=== PATIENT | female | born 1995 | race Caucasian/White ===

== ENCOUNTER 2021-11-20 11:06 | Outpatient (CLI) | payer OTHER, SELFPAY ==
--- NOTE | ~2021-11-20 | US_ITS ---
EXAMINATION: US OB /maternal detail EXAM DATE: 11/20/2021 12:08 INDICATION: 22 Weeks Anatomy. 2nd trimester. TECHNIQUE: Pelvic obstetrical transabdominal sonogram was performed by a technologist. There are mu ltiple grayscale and Doppler images available for interpretation. There are no earlier studies of th is gestation for comparison. FINDINGS: There is a single fetus identified in vertex presentation with a heart rate of 125 beats pe r minute. The placenta is located in the posterior position. There is no sonographic evidence of ret roplacental hemorrhage identified. There is subjectively expected amount of amniotic fluid. BIOMETRIC DATA: Biparietal diameter (BPD): 5.2 cm ----------------> 21 weeks 6 days. Head circumference (HC): 19.7 cm ----------------> 21 weeks 6 days. Abdominal circumference (AC): 16.4 cm ----------> 20 weeks 3 days. Femur length (FL): 3.6 cm --------------------------> 21 weeks 2 days. These measurements are concordant. HC/AC ratio is 1.20 (The 5th -- 95th percentile range is 1.06-1.24. Estimated weight is 426 g +/- 64 g. This is the 25th percentile percentile when the currently reported clinical gestation age 21 weeks 6 days, clinical estimated date of delivery (RAJESH-OPE) 03/27/ 022 is used. estimated gestational age based on measurements from this exam is 21 weeks 4 days, with an estimated date of delivery (RAJESH-AUA) 03/29. ANATOMIC SURVEY: The following anatomy is identified and is sonographically normal in appearance: Cerebral ventricles Cavum septum pellucidum Cerebellum Cisterna magna Nuchal fold CTL-spine Four-chamber heart Cardiac outflow tracts Diaphragm Stomach Kidneys Bladder Three-vessel cord Cord insertion Extremities Nose/lips IMPRESSION: 1. Single fetus in vertex presentation with heart rate 125 beats per minute. 2. Estimated weight of 426 grams, 25th percentile using the currently reported clinical gestat ion age of 21 weeks 6 days, RAJESH(OPE) 03/27. 3. Normal anatomic survey. Reviewed, dictated and finalized at location G. HAULER IMPRESSION: 1. Single fetus in vertex presentation with heart rate 125 beats per minute. 2. Estimated weight of 426 grams, 25th percentile using the currently re ported clinical gestation age of 21 weeks 6 days, RAJESH(OPE) 03/27. 3. Normal anatomic survey.
[2022-03-24 22:10] VITALS: BP 136/85; PULSE 69
[2022-03-24 22:15] VITALS: BP 128/78; PULSE 68
[2022-03-24 22:30] VITALS: BP 130/82; PULSE 70
[2022-03-24 22:45] VITALS: BP 120/80; PULSE 72
== END 2021-11-20 11:07 | disposition home or self-care (01) ==
LOC: ANHIMG 11:11
PROVIDERS: Visit Provider Student in an Organized Health Care Education/Training Program
DX: Z34.90 Encounter for supervision of normal pregnancy, unspecified, unspecified trimester (principal); Z3A.21 21 weeks gestation of pregnancy
CPT/HCPCS: 76805

== ENCOUNTER 2022-03-24 21:58 | Outpatient (CLI) | payer OTHER, SELFPAY ==
[2022-03-24 23:13] VITALS: BP 128/78; PULSE 68
== END 2022-03-24 23:10 | disposition home or self-care (01) ==
LOC: ANHOBOP 22:51 → ANHLDR 22:51
PROVIDERS: Visit Provider Student in an Organized Health Care Education/Training Program
DX: O42.90 Premature rupture of membranes, unspecified as to length of time between rupture and onset of labor, unspecified weeks of gestation (principal); Z3A.00 Weeks of gestation of pregnancy not specified
CPT/HCPCS: 59025; 84112; 99199

== ENCOUNTER 2022-03-28 16:02 | Inpatient (IN) | payer OTHER, SELFPAY ==
[2022-03-28] VITALS (7 sets, daily range): BP systolic 115–131; BP diastolic 70–85; PULSE 70–93; TEMP 36.1–36.3; BMI 28.0
[2022-03-28 16:58] LABS: Basophils Percent Auto 0.2 % (0.2-1.2); Eosinophils Absolute Auto 0.1 K/mm3 (0-0.3); Eosinophils Percent Auto 1.6 % (0-4.4); Hematocrit 37.6 % (37.0-47.0); Hemoglobin 12.6 g/dL (12.0-15.0); Immature Granulocyte Absolute 0.04 K/mm3 (0.00-0.031); Immature Granulocyte Percent A 0.5 % (0-0.5); Lymphocytes Absolute Auto 0.85 K/mm3 (0.9-3.2); Mean Corpuscular HGB Conc 33.5 g/dl (32-36); Mean Corpuscular Hemoglobin 31.9 pg (26-34); Mean Corpuscular Volume 95.2 fl (80-100); Mean Platelet Volume 11.2 fl (7.4-10.4); Monocytes Absolute Auto 0.5 K/mm3 (0.1-0.6); Monocytes Percent Auto 5.9 % (2.6-8.5); Neutrophils Percent Auto 81.8 % (45.5-73.1); Platelet Count Result 178 k/mm3 (150-375); Red Blood Count 3.95 M/mm3 (4.2-5.4); Red Cell Distribution Width 13.5 % (11.5-14.5); White Blood Count 8.5 K/mm3 (4.5-10.0)
[2022-03-28] MEDS: DINOPROSTONE 10 MG VAG INSERT VAGINAL (17:00)
[2022-03-28] MEDS: LACTATED RINGERS 1,000 ML 125 ML IV CONT (17:09)
[2022-03-28] MEDS: AMPICILLIN 2 GM/NS 100 ML 2 GM/100 ML BAG IVPB (17:13)
--- NOTE | 2022-03-28 17:24 | LDADM ---
This patient, Nadine Manuel, was admitted to Labor/Delivery/Recovery 108 on 03/28/22 at 16:02 for induction of labor. Plans for labor, pain management and were discussed with patient. Patient/family oriented to hospital policies and general routines including ID bracelet, bed and alarms, visiting hours, pain management, procedures, bathroom and other care routines, personal items, smoking policy, room service/diet and guest tray routines, security routines, and visiting hours. Patient/Family are encouraged to report perceived risks to care and to ask questions if they do not understand what they are told or what they should do. See OBIX for further documentation.
[2022-03-28] MEDS: FAMOTIDINE 20 MG/2 ML VIAL IV PUSH (17:44)
[2022-03-28 18:11] LABS: HIV 1/2 Ab P24 Ag Result Negative (Negative)
--- NOTE | 2022-03-28 18:13 | WPDANESEPP ---
Anes - Eval Pre Procedure Procedure: labor epidural Date/Time: 03/28/22 18:13 Surgeon: isaías Pre Op Diagnosis: IOL Patient Data Age: 26 Gender: F Height: 1.83 m Weight: 94 kg Last Vital Signs Pulse 77 03/28/22 18:00 BP 115/70 03/28/22 18:00 O2 Del Method Room Air 03/28/22 17:15 Allergies Allergy/AdvReac Type Severity Reaction Status Date / Time No Known Allergies Allergy Verified 02/27/22 13:28 Home Medications Medication Instructions Recorded Confirmed Type prenat.vits,jurgen,[id number] 1 tablet PO HS 02/27/22 03/28/22 History Laboratory Tests 03/28/22 03/28/22 03/28/22 16:44 16:44 16:44 WBC 8.5 K/mm3 K/mm3 (4.5-10.0) RBC 3.95 M/mm3 L M/mm3 (4.2-5.4) Hgb 12.6 g/dL g/dL (12.0-15.0) Hct 37.6 % % (37.0-47.0) MCV 95.2 fl fl (80-100) MCH 31.9 pg pg (26-34) MCHC 33.5 g/dl g/dl (32-36) RDW 13.5 % % (11.5-14.5) Plt Count 178 k/mm3 k/mm3 (150-375) MPV 11.2 fl H fl (7.4-10.4) Immature Gran % (Auto) 0.5 % % (0-0.5) Neut % (Auto) 81.8 % H % (45.5-73.1) Lymph % (Auto) 10.0 % L % (18.3-44.2) Haakon % (Auto) 5.9 % % (2.6-8.5) Eos % (Auto) 1.6 % % (0-4.4) Baso % (Auto) 0.2 % % (0.2-1.2) Lymph # (Auto) 0.85 K/mm3 L K/mm3 (0.9-3.2) Haakon # (Auto) 0.5 K/mm3 K/mm3 (0.1-0.6) Eos # (Auto) 0.1 K/mm3 K/mm3 (0-0.3) Baso # (Auto) 0.0 K/mm3 K/mm3 (0.0-0.1) Abs Immat Gran (auto) 0.04 K/mm3 H K/mm3 (0.00-0.031) Absolute Neuts (auto) 7.0 K/mm3 H K/mm3 (1.3-6.7) Absolute Nucleated RBC 0.0 K/mm3 K/mm3 (0.0-0.012) Nucleated RBC % 0.0 % % (0.0-0.2) RPR Pending HIV 1&2 Ab/P24 Ag 4thGn Negative (Negative) Blood Type Antibody Screen 03/28/22 16:44 WBC RBC Hgb Hct MCV MCH MCHC RDW Plt Count MPV Immature Gran % (Auto) Neut % (Auto) Lymph % (Auto) Haakon % (Auto) Eos % (Auto) Baso % (Auto) Lymph # (Auto) Haakon # (Auto) Eos # (Auto) Baso # (Auto) Abs Immat Gran (auto) Absolute Neuts (auto) Absolute Nucleated RBC Nucleated RBC % RPR HIV 1&2 Ab/P24 Ag 4thGn Blood Type B Positive Antibody Screen Negative Patient hx anesthesia problems: none Family hx anesthesia problems: none Results Review: All pre-operative results and documents have been reviewed as part of the pre-operative evaluation. [facility] Family History Family History (Updated 03/28/22 @ 17:27 by Ingrid Dyer RN) Mother Asthma Father DVT (deep venous thrombosis) Occurred after back surgery Sibling Heart murmur Social History Social History Smoking status: Never smoker Second hand tobacco smoke exposure: No Substance use: never Spiritual care concerns: No Exam Day of Procedure 03/28/22 18:13
[2022-03-28] MEDS: AMPICILLIN 1 GM/NS 50 ML 1 GM/50 ML BAG IVPB (21:49)
[2022-03-28] MEDS: fentaNYL CITRATE INJ (*CRX) 100 MCG/2 ML VIAL 50 MCG IV PUSH (22:38)
[2022-03-29] VITALS (202 sets, daily range): BP systolic 104–144; BP diastolic 43–109; PULSE 40–130; RESP 16; TEMP 35.9–37.3; O2SAT 80–100
[2022-03-29] MEDS: AMPICILLIN 1 GM/NS 50 ML 1 GM/50 ML BAG IVPB ×4 (01:50→14:05)
[2022-03-29] MEDS: fentaNYL CITRATE INJ (*CRX) 100 MCG/2 ML VIAL IV PUSH (01:52)
[2022-03-29] MEDS: fentaNYL CITRATE INJ (*CRX) 100 MCG/2 ML VIAL 50 MCG IV PUSH (04:58)
[2022-03-29 06:39] LABS: Rapid Plasma Reagin Non-Reactive (NonReactive)
--- NOTE | 2022-03-29 07:41 | PM.IMHP ---
H&P: HPI History of Present Illness Date/Time: 03/29/22 07:41 Chief Complaint: Intrauterine at term Narrative: 26 yo at 40w1d who presents for elective IOL. Pt has been uncomplicated thus far. Pt did have GBS bacteruria Review of Systems Cardiovascular: Cardiovascular: Denies chest pain, Denies leg edema, Denies palpitations, Denies dyspnea and Denies dyspnea on exertion Respiratory: Respiratory: Denies cough, Denies dyspnea and Denies dyspnea on exertion Gastrointestinal: Gastrointestinal: Denies abdominal pain, Denies constipation, Denies diarrhea, Denies nausea and Denies vomiting Genitourinary: Genitourinary: Denies hematuria, Denies urinary frequency, Denies dysuria, Denies pelvic pain, Denies urinary incontinence and Denies vaginal discharge Neurologic: Reports system reviewed and no additional complaints, except as documented Psychiatric: Psychiatric: Reports no additional psychiatric complaints Endocrine: Endocrine: Denies palpitations [facility] Family History Family History (Updated 03/28/22 @ 17:27 by Ingrid Dyer RN) Mother Asthma Father DVT (deep venous thrombosis) Occurred after back surgery Sibling Heart murmur Social History Social History Smoking status: Never smoker Second hand tobacco smoke exposure: No Substance use: never Spiritual care concerns: No Meds Home Medications and Allergies Home Medications Medication Instructions Recorded Confirmed Type prenat.vits,jurgen,szn-ddep-lrlxs 1 tablet PO HS 02/27/22 03/28/22 History Allergies Allergy/AdvReac Type Severity Reaction Status Date / Time No Known Allergies Allergy Verified 02/27/22 13:28 Vital Signs Vital Signs - 24 hr 03/28/22 16:48 03/28/22 18:00 03/28/22 16:46 Temperature 36.1 C L 36.2 C L Pulse Rate 84 77 Blood Pressure 131/82 115/70 Pulse Oximetry Oxygen Delivery 03/28/22 19:01 03/28/22 20:01 03/28/22 22:41 Temperature Pulse Rate 70 91 93 Blood Pressure 119/72 119/71 121/85 Pulse Oximetry Oxygen Delivery 03/28/22 17:15 03/29/22 01:11 03/29/22 01:12 Temperature Pulse Rate Blood Pressure Pulse Oximetry 80 L 92 Oxygen Delivery Room Air 03/29/22 01:17 03/29/22 01:22 03/29/22 01:27 Temperature Pulse Rate Blood Pressure Pulse Oximetry 99 99 98 Oxygen Delivery 03/29/22 01:32 03/29/22 01:37 03/29/22 01:42 Temperature Pulse Rate Blood Pressure Pulse Oximetry 98 100 98 Oxygen Delivery 03/29/22 01:50 03/29/22 01:55 03/29/22 01:56 Temperature Pulse Rate 66 Blood Pressure 115/63 Pulse Oximetry 97 99 Oxygen Delivery 03/29/22 02:00 03/29/22 02:05 03/29/22 02:10 Temperature Pulse Rate Blood Pressure Pulse Oximetry 96 98 98 Oxygen Delivery 03/29/22 02:13 03/29/22 02:18 03/29/22 02:23 Temperature Pulse Rate Blood Pressure Pulse Oximetry 99 98 99 Oxygen Delivery 03/29/22 02:28 03/29/22 02:33 03/29/22 02:38 Temperature Pulse Rate Blood Pressure Pulse Oximetry 99 98 99 Oxygen Delivery 03/29/22 02:43 03/29/22 02:48 03/29/22 02:53 Temperature Pulse Rate Blood Pressure Pulse Oximetry 99 98 99 Oxygen Delivery 03/29/22 02:58 03/29/22 03:03 03/29/22 03:08 Temperature Pulse Rate Blood Pressure Pulse Oximetry 99 98 99 Oxygen Delivery 03/29/22 03:13 03/29/22 03:18 03/29/22 03:26 Temperature Pulse Rate Blood Pressure Pulse Oximetry 99 99 99 Oxygen Delivery 03/29/22 03:31 03/29/22 03:36 03/29/22 03:41 Temperature Pulse Rate Blood Pressure Pulse Oximetry 100 99 99 Oxygen Delivery 03/29/22 03:46 03/29/22 03:51 03/29/22 03:56 Temperature Pulse Rate Blood Pressure Pulse Oximetry 99 99 99 Oxygen Delivery 03/29/22 04:01 03/29/22 04:06 03/29/22 04:11 Temperature Pulse Rate Blood Pressure Pulse Oximetry 99 99 100 O
--- NOTE | 2022-03-29 07:47 | PM.OBPNLAB ---
Pain Control Date/time seen: 03/29/22 07:47 Pelvic Exam Dilation (cm): 2 Effacement (%): 50 station: -2 Amniotic membrane status: Ruptured (unintentional amniotomy at jean-baptiste placement, clear) Status status: Category l Assessment and Plan Assessment: induction ongoing Plan: begin patient augmentation Comments: s/p cervidil. Cervical jean-baptsite catheter placed. Unintentional amniotomy at placement, clear fluid. FHT cat 1. will augment with pitocin as necessary
[2022-03-29] MEDS: LACTATED RINGERS 1,000 ML 125 ML IV CONT ×2 (08:12→09:48)
[2022-03-29] MEDS: OXYTOCIN 30 UNITS/NS 500 ML 30 UNITS/500 ML BAG IV CONT (09:33)
--- NOTE | 2022-03-29 15:56 | PM.OBPRVD ---
OB - Delivery Note Procedure Procedure: Patient pushed for a spontaneous vaginal delivery. The fetus was delivered atraumatically and placed on the maternal abdomen. The cord was clamped and cut after 1 minute of life. The cord was double clamped and cut and a segment of cord was collected for cord gases. Cord blood was collected for blood type and Coomb's testing. The placenta delivered spontaneously and was noted to be intact. The perineum was inspected and there was a 2nd degree perineal laceration. The laceration was repaired with 3-0 vicryl in the usual fashion. The uterus was firm and good hemostasis was noted. The patient and fetus were stable in the delivery room. Delivery monitor: External FHT Route of delivery: Episiotomy description: None Laceration Description: Perineal - 2nd Degree, Vaginal (bilateral) and Superficial Delivery repair: vicryl Specimen: No Quantitative Blood Loss (ml): 200 Disposition: Floor () Complications: No immediate complications Baby Date of : 03/29/22 Time of : 15:38 Weeks of gestation at delivery: 40 Infant gender: Male Weight (pounds): 9 Weight (ounces): 10 presentation: vertex position: Right Occiput Anterior Placenta delivery description: Spontaneous Cord Vessel Description: 3 Vessels score one minute: 9 score five minutes: 9
[2022-03-29] MEDS: OXYTOCIN 30 UNITS/NS 500 ML 30 UNITS/500 ML BAG 125 UNITS IV CONT (16:25)
[2022-03-29] MEDS: IBUPROFEN 600 MG TABLET PO (18:37)
[2022-03-29] MEDS: ACETAMINOPHEN 325 MG TABLET 650 MG PO (18:38)
[2022-03-29] MEDS: BENZOCAINE 20% AER SPR (*SP) 56 GM CAN 1 SPRAY TOPICAL (18:38)
[2022-03-29] MEDS: WITCH HAZEL 40 PADS 1 PAD TOPICAL (18:38)
--- NOTE | 2022-03-29 19:20 | OBPPTRN ---
Patient transferred to post room #282 via wheelchair. Support person present. Oriented to unit, room, information board, rooming in, admission packet and security measures. Patient verbalizes understanding. with patient.
[2022-03-30] MEDS: IBUPROFEN 600 MG TABLET PO ×2 (04:22→13:47)
[2022-03-30] MEDS: ACETAMINOPHEN 325 MG TABLET 650 MG PO ×2 (04:22→13:48)
[2022-03-30 04:25] VITALS: BP 118/82; PULSE 67; RESP 16; TEMP 36.6; O2SAT 98
[2022-03-30 05:06] LABS: Hematocrit 31.9 % (37.0-47.0); Hemoglobin 10.8 g/dL (12.0-15.0)
[2022-03-30 06:54] VITALS: BP 108/83; PULSE 65; RESP 18; TEMP 36.7; O2SAT 100
--- NOTE | 2022-03-30 08:10 | P.PNOB_ITS ---
OB - PN: Subj Subjective Date/time seen: 03/30/22 08:10 Patient comments: no complaints, pain well controlled and tolerating diet [place] feeding status: exclusively breast feeding Narrative: patient doing well this AM. No complaints. Pain is well controlled. She reports minimal bleeding. She is ambulating and voiding without difficulty. She is tolerating PO. She denies N/V, fever, chills. OB - PN: Obj Data Labs CBC & Chem 7: 03/30/22 04:33 Labs: Laboratory Results - last 24 hr 03/30/22 04:33 Hgb 10.8 L Hct 31.9 L OB - PN A/P Plan day: 1 Plan: routine care Comments: patient doing well H/H stable plan for infanct circumcision today, risks, benefits, alternatives discussed. Consent obtained continue routine care Time Spent With Patient Time: Total time spent is greater than 50% in coordination of care (as documented) at patient's floor/unit and/or counseling patient: Time with patient: less than 15 minutes Review of Systems Review of Systems: All systems reviewed & are unremarkable except as noted in HPI and below Exam Const: General: comfortable and no acute distress Resp: Effort & Inspection: normal respiratory effort Cardio: Rate: regular rate GI: GI Palp: Yes Soft to palpation and No Tenderness to palpation present (GI) Auscultation: normal bowel sounds Other: fundus firm and below umbilicus. Psych: Affect: normal affect
[2022-03-30] MEDS: MULTIVIT/MIN/PREN/FOL AC/IRON TABLET 1 TAB PO (13:47)
[2022-03-30] MEDS: DOCUSATE SODIUM 100 MG CAPSULE PO (13:48)
[2022-03-30 20:10] VITALS: BP 114/70; PULSE 85; RESP 18; TEMP 36.5; O2SAT 98
[2022-03-31 07:30] VITALS: BP 105/63; PULSE 70; RESP 20; TEMP 36.4
--- NOTE | 2022-03-31 08:11 | P.DS_ITS ---
DS: Admitting Diagnosis Discharge Date 03/31/22 Admitting Diagnosis intrauterine at term OB - DS: Summary Hospital Course Hospital Course: 26 yo G1 who presented for elective IOL. Pt went on to have an uncomplicated . Pt course was uncomplicated and she was d/c home on PPD#2. OB Procedures : None OB Procedures Intrapartum: Spontaneous Vag Delivery OB Procedures: : None Peripartum Data Delivery Method: Natural Vaginal Laceration Description: Perineal - 2nd Degree Status at Discharge Functional status at discharge: independent ambulation Overall status at discharge: patient is back to baseline Time Spent with Patient Time attestation: Total time spent providing and/or coordinating discharge services: Time spent: Less than 30 minutes Exam Const: General: comfortable and no acute distress Resp: Effort & Inspection: normal respiratory effort Auscultation: clear to auscultation bilaterally Cardio: Rate: regular rate GI: GI Palp: Yes Soft to palpation Auscultation: normal bowel sounds Other: Fundus firm below umbilicus Psych: Appearance: grossly normal Mental Status: mental status grossly normal Affect: normal affect Discharge Plan Discharge Discharging Clinician: Laz Cespedes Patient Disposition: Home, Self-Care Activity: as tolerated and pelvic rest Diet: regular Patient Instructions: Antibiotic Form, Vaginal Delivery (DC) Stand Alone Forms: General Discharge Information Follow-up/Referrals: Laz Cespedes MD [Physician] - 4 Weeks Discharge Medications: New acetaminophen [Mapap (acetaminophen)] 325 mg Tablet 650 mg PO Q6H PRN (Reason: Mild Pain (1-3) Or Headache) Qty: 30 0RF ibuprofen 600 mg Tablet 600 mg PO Q6H PRN (Reason: Cramping) Qty: 30 0RF Continued #2 Tablet 1 tablet PO HS Date of admission: 03/28/22 16:02 Primary Care Provider: PHYSICIAN,RECEPTIONIST SECRETARY Admitting Provider: Laz Cespedes Attending physician on admission: Laz Cespedes Condition: Stable
--- NOTE | 2022-03-31 08:40 | PC.NURSE ---
Pt states she is exhausted; she was up with baby all night either trying to feed or baby crying. States the only time either of them slept was when she was holding infant in her arms. Baby arching back and crying with attempt to put to breast. Soothed and then back to breast. not wanting to latch well. Went back to using breast shield. With stimulation, baby only sucked intermittently. required pulling down on chin to deepen latch and lifting both lips to make them curl outwards. Trickled some of the colostrum that pt had already pumped onto nipple- infant would open mouth better and suck a few times. Tried both sides and both cross cradle and football position. Placed gloved pinkie finger in infant's mouth to assess suck. would chomp down on finger and give a tentative suck, but didn't really apply any suction to my finger or curl tongue around my finger as suck attempts were made. Discussed suck training with pt. Pt concerned about 's feeding and requested supplementation. The remaining 3ml of colostrum were given to baby by syringe and an additional 18 ml of Enfamil were given per bottle. Baby swaddled and in crib peaceful. Pt encouraged to sleep.
[2022-03-31] MEDS: DOCUSATE SODIUM 100 MG CAPSULE PO (08:48)
[2022-03-31] MEDS: MULTIVIT/MIN/PREN/FOL AC/IRON TABLET 1 TAB PO (08:48)
[2022-03-31] MEDS: ACETAMINOPHEN 325 MG TABLET 650 MG PO (08:49)
[2022-03-31] MEDS: IBUPROFEN 600 MG TABLET PO (08:50)
[2022-04-01 15:22] VITALS: TEMP 36.9
== END 2022-03-31 14:13 | disposition home or self-care (01) | DRG 807 ==
LOC: ANHLDR 16:05 → ANHOB2 03-29 19:27
PROVIDERS: Admitting Provider Student in an Organized Health Care Education/Training Program; Visit Provider Student in an Organized Health Care Education/Training Program
DX: O99.824 Streptococcus B carrier state complicating childbirth (principal); Z37.0 Single live birth; O70.1 Second degree perineal laceration during delivery; O76 Abnormality in fetal heart rate and rhythm complicating labor and delivery; Z3A.40 40 weeks gestation of pregnancy
CPT/HCPCS: 36415; 85014; 85018; 85025; 86592; 86703; 86850; 86900; 86901; A9270; G0432; J0290; J2590; J2795; J3010; J7120

== ENCOUNTER 2022-04-01 19:52 | Outpatient (CLI) | payer OTHER, SELFPAY ==
[2022-04-01 20:30] VITALS: BP 120/79; PULSE 86; RESP 20; TEMP 36.7
[2022-04-01 20:43] LABS: Basophils Percent Auto 0.4 % (0.2-1.2); Eosinophils Absolute Auto 0.4 K/mm3 (0-0.3); Eosinophils Percent Auto 5.4 % (0-4.4); Hematocrit 32.8 % (37.0-47.0); Hemoglobin 10.7 g/dL (12.0-15.0); Immature Granulocyte Absolute 0.03 K/mm3 (0.00-0.031); Immature Granulocyte Percent A 0.4 % (0-0.5); Lymphocytes Absolute Auto 1.34 K/mm3 (0.9-3.2); Lymphocytes Percent Auto 18.2 % (18.3-44.2); Mean Corpuscular HGB Conc 32.6 g/dl (32-36); Mean Corpuscular Hemoglobin 31.8 pg (26-34); Mean Corpuscular Volume 97.3 fl (80-100); Mean Platelet Volume 10.7 fl (7.4-10.4); Monocytes Absolute Auto 0.4 K/mm3 (0.1-0.6); Monocytes Percent Auto 5.8 % (2.6-8.5); Neutrophils Absolute Auto 5.1 K/mm3 (1.3-6.7); Neutrophils Percent Auto 69.8 % (45.5-73.1); Platelet Count Result 198 k/mm3 (150-375); Red Blood Count 3.37 M/mm3 (4.2-5.4); Red Cell Distribution Width 13.6 % (11.5-14.5); White Blood Count 7.4 K/mm3 (4.5-10.0)
[2022-04-01 20:53] LABS: Alanine Aminotransferase 45 U/L (6-35); Albumin Level 3.6 g/dL (3.5-5.1); Alkaline Phosphatase 130 U/L (38-126); Anion Gap 1 mmol/L (8-16); Aspartate Amino Transferase 52 U/L (14-36); Bilirubin,Total 0.5 mg/dL (0.2-1.3); Blood Urea Nitrogen 11 mg/dL (7-17); Calcium 8.7 mg/dL (8.4-10.2); Carbon Dioxide 30 mmol/L (22-30); Chloride 104 mmol/L (98-107); Estimated Glomerular Filt Rate > 60; Glucose 87 mg/dL (65-110); Potassium 3.5 mmol/L (3.4-5.0); Sodium 135 mmol/L (137-145); Uric Acid 5.4 mg/dL (2.5-7.5)
--- NOTE | 2022-04-01 21:07 | PC.NURSE ---
pt is here for her baby's Wil[place] light. Started to complains left hand tingling and blurred vision. pt appears very tired and states she has not slept since discharged. BP is WNL, PIH lab was obtained and reported to Dr. Cespedes. Made aware of elevated AST ALT. OKay to discharge. encouraged pt for sleep and rest.
== END 2022-04-01 23:40 | disposition home or self-care (01) ==
LOC: ANHOBOP 19:53 → ANHOBPP 20:07
PROVIDERS: Visit Provider Student in an Organized Health Care Education/Training Program
DX: O13.5 Gestational [pregnancy-induced] hypertension without significant proteinuria, complicating the puerperium (principal)
CPT/HCPCS: 36415; 80053; 84550; 85025; 99199

== ENCOUNTER 2022-12-24 14:12 | Outpatient (CLI) | payer OTHER, SELFPAY ==
[2022-12-24 14:42] LABS: Basophils Percent Auto 0.4 % (0.2-1.2); Eosinophils Absolute Auto 0.1 K/mm3 (0-0.3); Eosinophils Percent Auto 1.6 % (0-4.4); Hemoglobin 12.9 g/dL (12.0-15.0); Immature Granulocyte Absolute 0.02 K/mm3 (0.00-0.031); Immature Granulocyte Percent A 0.2 % (0-0.5); Lymphocytes Absolute Auto 1.15 K/mm3 (0.9-3.2); Lymphocytes Percent Auto 14.4 % (18.3-44.2); Mean Corpuscular HGB Conc 33.1 g/dl (32-36); Mean Corpuscular Hemoglobin 30.3 pg (26-34); Mean Corpuscular Volume 91.5 fl (80-100); Mean Platelet Volume 10.2 fl (7.4-10.4); Monocytes Absolute Auto 0.3 K/mm3 (0.1-0.6); Monocytes Percent Auto 3.9 % (2.6-8.5); Neutrophils Absolute Auto 6.4 K/mm3 (1.3-6.7); Neutrophils Percent Auto 79.5 % (45.5-73.1); Platelet Count Result 251 k/mm3 (150-375); Red Blood Count 4.26 M/mm3 (4.2-5.4); Red Cell Distribution Width 14.5 % (11.5-14.5)
[2022-12-24 15:34] LABS: HIV 1/2 Ab P24 Ag Result Negative (Negative)
[2022-12-24 15:52] LABS: Hepatitis B Surface Antigen Negative (Negative); Rubella IgG Antibody 33.5 IU/ML
[2022-12-25 09:06] LABS: Rapid Plasma Reagin Non-Reactive (NonReactive)
[2022-12-27 08:55] LABS: CMV IgG Antibody <0.60 U/mL (<0.60)
[2023-01-08 18:36] LABS: CF Result NEGATIVE (NEGATIVE)
== END 2022-12-24 14:13 | disposition home or self-care (01) ==
PROVIDERS: Visit Provider Student in an Organized Health Care Education/Training Program
DX: N94.89 Other specified conditions associated with female genital organs and menstrual cycle (principal)
CPT/HCPCS: 36415; 81220; 84702; 85025; 86592; 86644; 86703; 86747; 86762; 86787; 86850; 86900; 86901; 87086; 87340; G0432

== ENCOUNTER 2023-02-02 06:00 | Emergency (ER) | payer OTHER, SELFPAY ==
--- NOTE | ~2023-02-02 | US_ITS ---
EXAMINATION: US renal BI DATE: 02/02/2023 08:31 INDICATION: Right flank pain. 15 weeks . TECHNIQUE: Multiple ultrasound grayscale images of the kidneys were obtained. COMPARISON: None. FINDINGS: The right kidney measures 11.4 x 5.3 x 5.4 cm. The left kidney measures 11.2 x 5.1 x 5.0 cm. The kidn eys demonstrate normal parenchymal echogenicity. There is no hydronephrosis. The bladder is normal. IMPRESSION: 1. Normal kidneys. No hydronephrosis. Reviewed, dictated and finalized at location A.
[2023-02-02 06:06] VITALS: BP 108/67; PULSE 75; RESP 18; TEMP 36.6; O2SAT 100
[2023-02-02 06:36] LABS: Basophils Percent Auto 0.3 % (0.2-1.2); Eosinophils Absolute Auto 0.1 K/mm3 (0-0.3); Eosinophils Percent Auto 0.9 % (0-4.4); Hematocrit 36.1 % (37.0-47.0); Immature Granulocyte Absolute 0.02 K/mm3 (0.00-0.031); Immature Granulocyte Percent A 0.3 % (0-0.5); Lymphocytes Absolute Auto 0.49 K/mm3 (0.9-3.2); Lymphocytes Percent Auto 7.2 % (18.3-44.2); Mean Corpuscular HGB Conc 33.2 g/dl (32-36); Mean Corpuscular Hemoglobin 31.5 pg (26-34); Mean Corpuscular Volume 94.8 fl (80-100); Monocytes Absolute Auto 0.4 K/mm3 (0.1-0.6); Monocytes Percent Auto 5.3 % (2.6-8.5); Neutrophils Absolute Auto 5.9 K/mm3 (1.3-6.7); Platelet Count Result 180 k/mm3 (150-375); Red Blood Count 3.81 M/mm3 (4.2-5.4); Red Cell Distribution Width 14.2 % (11.5-14.5); White Blood Count 6.8 K/mm3 (4.5-10.0)
[2023-02-02 06:43] LABS: Appearance Urine Cloudy (Clear); Bacteria Urine Rare /hpf; Bilirubin Urine Negative (Negative); Blood Urine 2+ (Negative); Color Urine Dark Yellow (Yellow); Glucose Urine UA Negative (Negative); Ketones Urine Trace mg/dL (Negative); Leukocyte Esterase Ur 3+ LEU/UL (Negative); Nitrate Urine Negative (Negative); Non Pathogenic Casts 0-2; Protein Urine 1+ mg/dL (Negative); Squamous Epithelial Cell Urine Few /hpf (Few); WBC Urine >100 /hpf
[2023-02-02 06:45] LABS: Alanine Aminotransferase 30 U/L (6-35); Albumin Level 3.9 g/dL (3.5-5.1); Alkaline Phosphatase 65 U/L (38-126); Anion Gap 6 mmol/L (8-16); Aspartate Amino Transferase 22 U/L (14-36); Bilirubin,Total 1.2 mg/dL (0.2-1.3); Blood Urea Nitrogen 5 mg/dL (7-17); Calcium 8.4 mg/dL (8.4-10.2); Carbon Dioxide 27 mmol/L (22-30); Chloride 101 mmol/L (98-107); Estimated CRCL calculation 137 ml/min; Estimated Glomerular Filt Rate > 60; Glucose 104 mg/dL (65-110); Potassium 3.8 mmol/L (3.4-5.0); Sodium 134 mmol/L (137-145)
[2023-02-02 06:53] VITALS: BP 106/64; PULSE 73; RESP 14; TEMP 36.6; O2SAT 100
[2023-02-02 07:20] VITALS: BP 110/63; PULSE 76; RESP 15; O2SAT 100
[2023-02-02 07:23] LABS: Add Urine Microscopic? YES
[2023-02-02] MEDS: SODIUM CHLORIDE 0.9% IV 1,000 ML 999 ML IV CONT (07:34)
--- NOTE | 2023-02-02 07:36 | ED.GENADULT ---
HPI - General Adult General Chief complaint: Urogenital-Female Stated complaint: flank pain, blood in her urine, 15 weeks Time Seen by Provider: 02/02/23 07:01 Source: RN notes reviewed History of Present Illness HPI narrative: Patient presents emergency department from home for hematuria. Patient states she began to notice some blood in her urine and some foul-smelling urine yesterday states that it then progressed to having associated right-sided flank pain that is described as aching in nature. States the pain flank pain remains in the flank and does not radiate she denies having any fevers or chills states that she is currently approximately [address] weeks is followed by Dr. Cespedes states she has had a ultrasound showing intrauterine in the office. States she does have a history of previous kidney stones but this does not feel as similar as previous stones she states she has had no nausea or vomiting she denies any vaginal bleeding or discharge Related Data Home Medications Medication Instructions Recorded Confirmed prenat.vits,jurgen,mxd-[id number]-xdfiw 1 tablet PO HS 02/27/22 03/28/22 Allergies Allergy/AdvReac Type Severity Reaction Status Date / Time No Known Allergies Allergy Verified 02/02/23 07:20 Review of Systems Review of Systems: Gen.: Denies fevers or chills ENT: Denies congestion Respiratory: Denies shortness of breath or cough CV: Denies chest pain or palpitations GI: Denies abdominal pain nausea, emesis or diarrhea reports right flank pain see HPI Musculoskeletal: Denies back pain or muscle pain Neuro: Denies numbness, tingling, weakness or focal weakness Skin: Denies rash Except as documented, all other systems reviewed and negative [facility] Past Medical History Medical History Suppression of menses Family History Family History Mother Asthma Father DVT (deep venous thrombosis) Occurred after back surgery Sibling Heart murmur Social History Social History Smoking status: Never smoker Second hand tobacco smoke exposure: No Alcohol intake: former Substance use: never Living arrangements: other Additional living arrangements comments: and child Occupation/Education: occupation Gender identity (if verbalized by the patient): Female Sexual Orientation (if Verbalized by the Patient): Straight or Heterosexual Spiritual care concerns: No Exam Narrative: APPEARANCE: No acute distress, nontoxic, resting in bed EYES: EOMI HEENT: Normocephalic, atraumatic, OMM RESPIRATORY: No respiratory distress Clear to auscultation bilaterally with no rhonchi wheezing or rales. CARDIOVASCULAR: Regular rate and rhythm without murmurs rubs or gallops. ABDOMINAL: Soft, nontender, nondistended, no rebound or guarding right flank tenderness MUSCULOSKELETAl: Moves all extremities. No clubbing, cyanosis or edema. NEURO: Awake and alert. Following commands, speech normal, no focal deficits SKIN:: Warm, dry. No rashes lesions or abrasions PSYCHIATRIC: Normal affect/mood, Course Course Emergency Course: Called and discussed with Dr. Mcginnis for Dr. Cespedes for MEDICAL OBSERVER presentation work-up at this time agrees with plan for discharge with patient started on Keflex 500 mg 4 times daily with follow-up as an outpatient States she is feeling better at this time Discussed with patient results of workup and diagnosis. Discussed need for follow-up with primary care, proper use of medication, and reasons to return to the emergency department. Patient understands and agrees to current treatment plan Vital Signs Vital signs: Vital Signs Temperature 97.9 F 02/02/23 06:06 Pulse Rate 75 02/02/23 06:06 Respiratory Rate 18 02/02/23 06:06 Blood Pressure 108/67 02/02/23 06:06 Pulse Oximetry 100 02/02/23 0
[2023-02-02 07:47] LABS: Lipase 64 U/L (23-300)
--- NOTE | 2023-02-02 08:05 | PC.NURSE ---
Pt to U/S via w/c at this time.
[2023-02-02 09:03] VITALS: BP 110/73; PULSE 71; RESP 17; O2SAT 99
== END 2023-02-02 09:03 | disposition home or self-care (01) ==
PROVIDERS: Emergency Medicine; Emergency Provider Emergency Medicine
DX: O23.42 Unspecified infection of urinary tract in pregnancy, second trimester (principal); N39.0 Urinary tract infection, site not specified; Z3A.15 15 weeks gestation of pregnancy
CPT/HCPCS: 36415; 76775; 80053; 81001; 83690; 85025; 87077; 87086; 87186; 96365; 96367; 99284; J0131; J0696; J7030

== ENCOUNTER 2023-04-18 10:42 | Outpatient (CLI) | payer OTHER, SELFPAY ==
[2023-04-18 11:23] VITALS: BP 107/67; PULSE 68
== END 2023-04-18 10:43 | disposition home or self-care (01) ==
LOC: ANHOBOP 11:15
PROVIDERS: Visit Provider Student in an Organized Health Care Education/Training Program
DX: O36.8910 Maternal care for other specified fetal problems, first trimester, not applicable or unspecified (principal); Z3A.00 Weeks of gestation of pregnancy not specified
CPT/HCPCS: 59025

== ENCOUNTER 2023-05-02 10:20 | Outpatient (CLI) | payer OTHER, SELFPAY ==
[2023-05-02 11:36] LABS: Basophils Percent Auto 0.5 % (0.2-1.2); Eosinophils Absolute Auto 0.1 K/mm3 (0-0.3); Hematocrit 35.7 % (37.0-47.0); Hemoglobin 11.7 g/dL (12.0-15.0); Immature Granulocyte Absolute 0.03 K/mm3 (0.00-0.031); Immature Granulocyte Percent A 0.5 % (0-0.5); Lymphocytes Absolute Auto 1.07 K/mm3 (0.9-3.2); Lymphocytes Percent Auto 16.4 % (18.3-44.2); Mean Corpuscular HGB Conc 32.8 g/dl (32-36); Mean Corpuscular Hemoglobin 31.9 pg (26-34); Mean Corpuscular Volume 97.3 fl (80-100); Mean Platelet Volume 10.1 fl (7.4-10.4); Monocytes Absolute Auto 0.2 K/mm3 (0.1-0.6); Monocytes Percent Auto 3.7 % (2.6-8.5); Neutrophils Percent Auto 76.9 % (45.5-73.1); Platelet Count Result 178 k/mm3 (150-375); Red Blood Count 3.67 M/mm3 (4.2-5.4); Red Cell Distribution Width 13.5 % (11.5-14.5); White Blood Count 6.5 K/mm3 (4.5-10.0)
[2023-05-02 11:46] LABS: Glucose 1 Hour PP 50gm Dose 125 mg/dL
[2023-05-02 12:26] LABS: HIV 1/2 Ab P24 Ag Result Negative (Negative)
== END 2023-05-02 10:21 | disposition home or self-care (01) ==
LOC: ANHLAB 10:21
PROVIDERS: Visit Provider Obstetrics & Gynecology
DX: O09.93 Supervision of high risk pregnancy, unspecified, third trimester (principal); Z3A.00 Weeks of gestation of pregnancy not specified
CPT/HCPCS: 36415; 82947; 85025; 86703; G0432

== ENCOUNTER 2023-07-02 20:50 | Observation (INO) | payer OTHER, SELFPAY ==
[2023-07-02 20:50] VITALS: BMI 26.9
[2023-07-02 21:19] VITALS: BP 116/67; PULSE 69
--- NOTE | 2023-07-03 10:54 | PM.OBTRLD ---
OB - Triage/Final Diagnosis Visit Information Date of evaluation: 07/03/23 Reason for evaluation: threatened labor Comments/Additional reasons for admission: I have assessed the risk for this patient, Nadine Manuel, and determined that she would benefit from observation care. Evaluation Vital signs: Vital Signs - 24 hr 07/02/23 21:19 Pulse Rate 69 Blood Pressure 116/67
== END 2023-07-02 22:55 | disposition home or self-care (01) ==
PROVIDERS: Admitting Provider Student in an Organized Health Care Education/Training Program; Visit Provider Student in an Organized Health Care Education/Training Program
DX: O47.9 False labor, unspecified (principal); Z3A.00 Weeks of gestation of pregnancy not specified
CPT/HCPCS: G0378; G0379

== ENCOUNTER 2023-07-04 10:47 | Observation (INO) | payer OTHER, SELFPAY ==
--- NOTE | ~2023-07-04 | US_ITS ---
EXAMINATION: US OB limited DATE: 07/04/2023 13:14 INDICATION: Vaginal bleeding during third trimester . TECHNIQUE: Real-time ultrasound of the pelvis was performed. The interpreting radiologist was not pre sent for the study. COMPARISON: 03/17/2023 FINDINGS: There is a single living fetus in breech presentation. The placenta is anterior and not low-lying. T here is a small anechoic venous ladd within the placenta. No evident subchorionic hematoma. hea rt rate is 131 beats per minute (bpm). The amniotic fluid volume is subjectively normal. IMPRESSION: 1. Single living fetus in vertex presentation with heart rate of 131 bpm. 2. Normal anterior placenta which is not low-lying with no evident subchorionic hematoma. Reviewed, dictated and finalized at location A. IMPRESSION: 1. Single living fetus in vertex presentation with heart rate of 131 bpm . 2. Normal anterior placenta which is not low-lying with no evident subchorioni c hematoma.
[2023-07-04 11:19] VITALS: BP 112/66; PULSE 71
--- NOTE | 2023-07-04 11:27 | OBADM ---
This patient, Nadine Manuel, admitted to the OB room OB Post 115 for observation. Patient/family oriented to hospital policies and general routines including ID bracelet, bed and alarms, visiting hours, pain management, procedures, bathroom and other care routines, personal items, smoking policy, room service/diet, and visiting hours. Patient/Family are encouraged to report perceived risks to care and to ask questions if they do not understand what they are told or what they should do.
--- NOTE | 2023-07-04 11:28 | PC.NURSE ---
1100--Pt admitted with c/o bleeding. Abdomen soft,reports only bleeding when she wipes. No pain. VSS stable
[2023-07-04 11:31] VITALS: BP 111/70; PULSE 66
[2023-07-04 11:46] VITALS: BP 110/66; PULSE 66
[2023-07-04 12:00] VITALS: TEMP 36.6
--- NOTE | 2023-07-04 14:00 | PC.NURSE ---
0349--Dr. Garcia at bedside. Speculum exam performed. Minimal bleeding noted. Precautions given per Dr. Garcia.
--- NOTE | 2023-07-04 14:00 | PM.OBTRLD ---
OB - Triage/Final Diagnosis Visit Information Comments/Additional reasons for admission: I have assessed the risk for this patient, Nadine Manuel, and determined that she would benefit from observation care. Evaluation Variability: Average (6-10) monitor accelerations: Present monitor decelerations: None Cervical dilation (cm): 1 (.5) Cervical effacement (%): 50 station: -3 Vital signs: Vital Signs - 24 hr 07/04/23 11:19 07/04/23 11:31 07/04/23 11:46 Pulse Rate 71 66 66 Blood Pressure 112/66 111/70 110/66 Final Diagnosis (1) Vaginal bleeding: Code(s): N93.9 - Abnormal uterine and vaginal bleeding, unspecified Status: Acute (2) Breech presentation: Qualifiers: Fetus number: single or unspecified fetus Qualified Code(s): O32.1XX0 - Maternal care for breech presentation, not applicable or unspecified Code(s): O32.1XX0 - Maternal care for breech presentation, not applicable or unspecified Status: Acute
--- NOTE | 2023-07-04 18:46 | PC.NURSE ---
1200--to US per wheelchair.
== END 2023-07-04 14:09 | disposition home or self-care (01) ==
PROVIDERS: Admitting Provider Obstetrics & Gynecology; Visit Provider Obstetrics & Gynecology
DX: O46.8X3 Other antepartum hemorrhage, third trimester (principal); N93.9 Abnormal uterine and vaginal bleeding, unspecified; O32.1XX0 Maternal care for breech presentation, not applicable or unspecified; Z3A.37 37 weeks gestation of pregnancy
CPT/HCPCS: 76815; G0378; G0379

== ENCOUNTER 2023-07-06 21:52 | Inpatient (IN) | payer OTHER, SELFPAY ==
--- NOTE | ~2023-07-06 | US_ITS ---
EXAMINATION: US OB limited w BPP DATE: 07/07/2023 09:06 INDICATION: Biophysical profile and presentation assessment, third trimester TECHNIQUE: Real-time pelvic ultrasound was performed. The interpreting radiologist was not present fo r the study. COMPARISON: 07/04/2023 FINDINGS: There is a single living fetus in breech presentation. The placenta is anterior. heart rate is 162 beats per minute (bpm). The amniotic fluid index is 9.0 cm which is normal (normal range: 7.5 cm to 24.4 cm). Biophysical profile performed by the technologist: breathing (30 sec sustained breathing in 30 minutes): 2 out of 2 movement (3 gross body movements in 30 minutes): 2 out of 2 tone (one episode of mjyytcd-ihqoirwef-iuwcknv limb movement): 2 out of 2 Amniotic fluid pocket (2 cm): 2 out of 2 Total score: 8 out of 8 IMPRESSION: 1. Single living fetus in breech presentation. 2. Biophysical profile 8 out of 8. 3. Normal amniotic fluid index. Reviewed, dictated and finalized at location A.
--- NOTE | 2023-07-06 21:52 | OBADM ---
This patient, Nadine Manuel, admitted to the OB room Labor/Delivery/Recovery 106 for observation. Patient/family oriented to hospital policies and general routines including ID bracelet, bed and alarms, visiting hours, pain management, procedures, bathroom and other care routines, personal items, smoking policy, room service/diet, and visiting hours. Patient/Family are encouraged to report perceived risks to care and to ask questions if they do not understand what they are told or what they should do.
[2023-07-06] MEDS: LACTATED RINGERS 1,000 ML 999 ML IV CONT (23:32)
[2023-07-06 23:34] VITALS: BP 136/81; PULSE 74
[2023-07-06 23:45] VITALS: BP 106/61; PULSE 68
[2023-07-07] VITALS (52 sets, daily range): BP systolic 91–121; BP diastolic 47–82; PULSE 59–134; RESP 11–20; TEMP 36.4–37.3; O2SAT 97–100; BMI 26.3
[2023-07-07] MEDS: LACTATED RINGERS 1,000 ML 150 ML IV CONT ×2 (00:25→07:04)
--- NOTE | 2023-07-07 09:52 | LDADM ---
This patient, Nadine Manuel, was admitted to Labor/Delivery/Recovery 106 on 07/07/23 at 09:52. Plans for labor, pain management and were discussed with patient. Patient/family oriented to hospital policies and general routines including ID bracelet, bed and alarms, visiting hours, pain management, procedures, bathroom and other care routines, personal items, smoking policy, room service/diet and guest tray routines, security routines, and visiting hours. Patient/Family are encouraged to report perceived risks to care and to ask questions if they do not understand what they are told or what they should do. See OBIX for further documentation.
[2023-07-07 10:05] LABS: Basophils Percent Auto 0.3 % (0.2-1.2); Eosinophils Absolute Auto 0.1 K/mm3 (0-0.3); Hematocrit 40.2 % (37.0-47.0); Hemoglobin 13.1 g/dL (12.0-15.0); Immature Granulocyte Absolute 0.03 K/mm3 (0.00-0.031); Immature Granulocyte Percent A 0.3 % (0-0.5); Lymphocytes Absolute Auto 1.06 K/mm3 (0.9-3.2); Lymphocytes Percent Auto 10.5 % (18.3-44.2); Mean Corpuscular HGB Conc 32.6 g/dl (32-36); Mean Corpuscular Hemoglobin 32.2 pg (26-34); Mean Corpuscular Volume 98.8 fl (80-100); Mean Platelet Volume 10.6 fl (7.4-10.4); Monocytes Absolute Auto 0.5 K/mm3 (0.1-0.6); Monocytes Percent Auto 4.5 % (2.6-8.5); Neutrophils Absolute Auto 8.4 K/mm3 (1.3-6.7); Neutrophils Percent Auto 83.4 % (45.5-73.1); Platelet Count Result 174 k/mm3 (150-375); Red Blood Count 4.07 M/mm3 (4.2-5.4); Red Cell Distribution Width 14.1 % (11.5-14.5); White Blood Count 10.1 K/mm3 (4.5-10.0)
--- NOTE | 2023-07-07 10:07 | PM.IMHP ---
H&P: HPI History of Present Illness Date/Time: 07/07/23 10:07 Chief Complaint: contractions/leakage Narrative: Nadine is a 27yo @ 37.6wks who presented with contractions and concerns for leakage. She was found to be obed frequently on admission but was 2.5cm, but they resolved after IV hydration. Amnisure could not be ran due to bleeding, but she denied any further leakage and no fluid was noted overnight. She has been having bleeding on and off since being checked in the office on 07/02/23. She was kept overnight for monitoring and US in the morning. BPP was 8/8, JUAN 9, and baby was breech. Speculum exam did not show fluid, small amount of bleeding, but on cervical exam, she was found to now be 5cm dilated. Her is complicated by: - Breech malpresentation - h/o e. coli UTI - GBS positive Review of Systems Constitutional: Constitutional: Denies chills, Denies fever(s) and Denies headache(s) Eyes: Eyes: Denies change in vision ENT: Denies headache(s) Cardiovascular: Cardiovascular: Denies chest pain and Denies dyspnea Respiratory: Respiratory: Denies dyspnea Genitourinary: Genitourinary: Denies abnormal vaginal bleeding and Denies vaginal discharge Neurologic: Denies headache(s) Psychiatric: Psychiatric: Denies anxiety and Denies depression [facility] Past Medical History Medical History Suppression of menses Family History Family History Mother Asthma Father DVT (deep venous thrombosis) Occurred after back surgery Sibling Heart murmur Social History Social History Smoking status: Never smoker Second hand tobacco smoke exposure: No Alcohol intake: former Substance use: never Lack of Transportation: No Lack of Food: Never True Current Housing: I Have Housing Concerned About Future Housing: No Difficulty Paying Gas/Electric Bills: No Difficulty Paying for Meds: No Currently Unemployed: No Education: Bachelor's Degree Difficulty w/ Childcare or Family Care: No Living arrangements: other Additional living arrangements comments: and child Occupation/Education: occupation Gender identity (if verbalized by the patient): Female Sexual Orientation (if Verbalized by the Patient): Straight or Heterosexual Spiritual care concerns: No Meds Home Medications and Allergies Home Medications Medication Instructions Recorded Confirmed Type prenat.vits,jurgen,avb-yumu-sfawh 1 tablet PO HS 02/27/22 03/28/22 History ferrous sulfate 325 mg (65 mg 325 mg PO DAILY 05/12/23 History iron) tablet omeprazole 40 mg capsule,delayed 40 mg PO DAILY #30 caps 05/26/23 05/26/23 Rx release Allergies Allergy/AdvReac Type Severity Reaction Status Date / Time No Known Allergies Allergy Verified 07/02/23 09:33 Vital Signs Vital Signs - 24 hr 07/06/23 23:37 07/06/23 23:34 07/06/23 23:45 Pulse Rate 74 68 Blood Pressure 136/81 106/61 Oxygen Delivery Room Air 07/07/23 00:00 07/07/23 00:15 07/07/23 01:00 Pulse Rate 68 63 61 Blood Pressure 103/54 L 97/49 L 91/47 L Oxygen Delivery 07/07/23 02:00 Pulse Rate 63 Blood Pressure 96/50 L Oxygen Delivery Exam Const: General: cooperative, comfortable, no acute distress and obese Nutritional Appearance: obese Orientation/consciousness: patient oriented x3 Resp: Effort & Inspection: normal respiratory effort Cardio: Rate: regular rate GI: GI Palp: No abdominal tenderness : Other: FHT's: 140's/ mod leandra/ + accels/ no decels - cat 1 TOCO: ctxs q2-5min Cervix: 5/50/-4 Membranes: intact Presentation: BREECH Skin: General skin exam: normal color Neuro: General: patient oriented x3 Extrem: General: normal to inspection Psych: Appearance: grossly normal Affect: normal affect Attitude: casimiro
--- NOTE | 2023-07-07 10:19 | WPDANESEPPF ---
Anes - Initial Pre Proc Eval Procedure: Operation Date: 07/07/23 10:30 Proposed Procedures p Section - Octavia Garcia MD Date/Time: 07/07/23 10:19 Surgeon: Octavia Garcia MD Pre Op Diagnosis: Leaking Patient Data Age: 27 Gender: F Height: 1.83 m Weight: 88 kg Last Vital Signs Pulse 63 07/07/23 02:00 BP 96/50 L 07/07/23 02:00 O2 Del Method Room Air 07/06/23 23:37 Allergies Allergy/AdvReac Type Severity Reaction Status Date / Time No Known Allergies Allergy Verified 07/02/23 09:33 Home Medications Medication Instructions Recorded Confirmed Type prenat.vits,jurgen,mjk-rtoy-shdhe 1 tablet PO HS 02/27/22 03/28/22 History ferrous sulfate 325 mg (65 mg 325 mg PO DAILY 05/12/23 History iron) tablet omeprazole 40 mg capsule,delayed 40 mg PO DAILY #30 caps 05/26/23 05/26/23 Rx release Laboratory Tests 07/07/23 09:58 WBC 10.1 H K/mm3 (4.5-10.0) RBC 4.07 L M/mm3 (4.2-5.4) Hgb 13.1 g/dL (12.0-15.0) Hct 40.2 % (37.0-47.0) MCV 98.8 fl (80-100) MCH 32.2 pg (26-34) MCHC 32.6 g/dl (32-36) RDW 14.1 % (11.5-14.5) Plt Count 174 k/mm3 (150-375) MPV 10.6 H fl (7.4-10.4) Immature Gran % (Auto) 0.3 % (0-0.5) Neut % (Auto) 83.4 H % (45.5-73.1) Lymph % (Auto) 10.5 L % (18.3-44.2) [place] % (Auto) 4.5 % (2.6-8.5) Eos % (Auto) 1.0 % (0-4.4) Baso % (Auto) 0.3 % (0.2-1.2) Lymph # (Auto) 1.06 K/mm3 (0.9-3.2) [place] # (Auto) 0.5 K/mm3 (0.1-0.6) Eos # (Auto) 0.1 K/mm3 (0-0.3) Baso # (Auto) 0.0 K/mm3 (0.0-0.1) Abs Immat Gran (auto) 0.03 K/mm3 (0.00-0.031) Absolute Neuts (auto) 8.4 H K/mm3 (1.3-6.7) Absolute Nucleated RBC 0.0 K/mm3 (0.0-0.012) Nucleated RBC % 0.0 % (0.0-0.2) RPR Pending Patient hx anesthesia problems: none Family hx anesthesia problems: none Results Review: All pre-operative results and documents have been reviewed as part of the pre-operative evaluation. [facility] Family History Family History Mother Asthma Father DVT (deep venous thrombosis) Occurred after back surgery Sibling Heart murmur Social History Social History Smoking status: Never smoker Second hand tobacco smoke exposure: No Alcohol intake: former Substance use: never Lack of Transportation: No Lack of Food: Never True Current Housing: I Have Housing Concerned About Future Housing: No Difficulty Paying Gas/Electric Bills: No Difficulty Paying for Meds: No Currently Unemployed: No Education: Bachelor's Degree Difficulty w/ Childcare or Family Care: No Living arrangements: other Additional living arrangements comments: and child Occupation/Education: occupation Gender identity (if verbalized by the patient): Female Sexual Orientation (if Verbalized by the Patient): Straight or Heterosexual Spiritual care concerns: No Anes - Eval Final PreProcedure Day of Procedure 07/07/23 10:19 Patient weight: normal Heart: regular rate and rhythm Lungs: clear to auscultation Airway: Mallampati scale class II Neurological: alert and oriented Last oral intake: >/= 8 hours (sips of water) ASA classification: II Emergent: no Anesthetic plan: proceed Anesthesia type and monitoring: regional spinal and standard monitoring Results Review: All pre-operative results and documents have been reviewed as part of the pre-operative evaluation. Informed Consent: The patient's anesthetic plan and its attendant risks and benefits were discussed with the patient/family/POA. Questions were solicited and answers provided to the satisfaction of the patient/family/POA.
--- NOTE | 2023-07-07 10:21 | WPDHPUPDATE1 ---
History and Physical Update Update Date/Time: 07/07/23 10:21 History and Physical has been reviewed, including an updated exam of the patient. There are NO changes in the patient's condition. Risks, benefits, and alternatives have been discussed and questions answered. Patient agrees to proceed with procedure.
[2023-07-07] MEDS: LACTATED RINGERS 1,000 ML 125 ML IV CONT (10:34)
[2023-07-07] MEDS: ceFAZolin 2 GM/D5W 50 ML 2 GM/50 ML BAG IVPB (11:04)
[2023-07-07 11:08] LABS: Rapid Plasma Reagin Non-Reactive (NonReactive)
--- NOTE | 2023-07-07 12:14 | PM.OBPRVD ---
OB - Delivery Note Procedure Delivery date: 07/07/23 Procedure: Procedures Operation Date: 07/07/23 10:30 <No data on this case meets the specified criteria> Events: Breech Presentation (in labor) and Positive Group B Strep (GBS) Route of delivery: Specimen: Yes (placenta) Quantitative Blood Loss (ml): 440 Anesthesia type: Spinal Disposition: Floor Baby Date of : 07/07/23 Time of : 11:34 Weeks of gestation at delivery: 37 (.6) gender: Female Weight (pounds): 6 Weight (ounces): 14 presentation: breech Placenta delivery description: Expressed Cord Vessel Description: 3 Vessels and Delayed Cord Clamping score one minute: 8 score five minutes: 9 Narrative: She was counseled on all risks and benefits in detail. She was taken to the operating room where spinal was placed. She was then prepped and draped in the normal sterile fashion. She received 2g Ancef and a time out was performed. A Pfannenstiel incision was made in the skin and carried down to the underlying fascia. The fascia was nicked on either side of the midline and the fascial incision was extended laterally and superiorly using curved Morton scissors. The fascia was then elevated using Sierra clamps and the underlying rectus muscles were dissected off the fascia, superiorly and inferiorly. The rectus muscles were then in the midline and the peritoneum was entered bluntly. Once adequate exposure was obtained, a Mobius self retractor was placed within the abdomen. A bladder flap was created. A low transverse incision was made on the lower uterine segment and clear fluid was noted. The buttocks were brought to the hysterotomy and the infant was easily delivered doing breech maneuvers. The had spontaneous cry and the mouth and nose were bulb suctioned. Delayed cord clamping was performed and then the cord was doubly clamped and cut and the was handed off to the awaiting pediatric nurse. A segment of the cord was collected for cord gases. The remaining cord blood was collected for typing. With pitocin infusing, the placenta delivered with gentle traction on the cord without complications. The uterus was then cleared out of all clots and debris using a clean, moist lap. The hysterotomy was then repaired in a running, interlocking fashion using 0 Vicryl. A figure of 8 stitch was placed in the middle of the hyterotomy due to an active bleeder. A second layer imbricating suture was then made using 0 Vicryl. The hysterotomy was found to be hemostatic and good uterine tone was noted. The bilateral adnexa were examined and found to be normal. The pelvis was cleared of all clots and fluid. The Mobius retractor was removed from the abdomen. The peritoneum, muscle, and fascia were examined and made hemostatic with bovie cautery. The fascia was then repaired using a 0 Vicryl suture in a running fashion. The subcutaneous tissue was then irrigated and made hemostatic with bovie cautery. The subcutaneous tissue was then reapproximated using 2-0 Vicryl. The skin was then closed using 4-0 Monocryl in a running subcuticular fashion. Sponge, lap, needle and instrument counts were correct at the end of the procedure x2. A Mepilex dressing was then placed over the incision. The patient tolerated the procedure well and was taken to recovery in a stable condition. [facility] Delivery Billing Delivery Delivery: Delivery Charge
[2023-07-07] MEDS: OXYTOCIN 30 UNITS/NS 500 ML 30 UNITS/500 ML BAG 125 UNITS IV CONT (13:15)
[2023-07-07] MEDS: KETOROLAC 30 MG/ML VIAL (*BKC) IV PUSH (15:24)
[2023-07-07] MEDS: LIDOCAINE 5% PATCH 1 PATCH TRANSDERM (15:35)
--- NOTE | 2023-07-07 16:11 | OBPPTRN ---
1432-Patient transferred to post room #284 via stretcher. Support person present. Oriented to unit, room, information board, rooming in, admission packet and security measures. Patient verbalizes understanding.
[2023-07-07] MEDS: DEXTROSE 5%/0.45% SOD CHL 1,000 ML 125 ML IV CONT (18:00)
[2023-07-07] MEDS: HYDROcodone/acetaminophen (*CRX) 5-325 MG TABLET 1 TAB PO (20:03)
[2023-07-08 00:05] VITALS: BP 92/48; PULSE 58; RESP 16; TEMP 36.6; O2SAT 96
[2023-07-08 03:49] VITALS: BP 96/59; PULSE 65; RESP 18; TEMP 36.8; O2SAT 97
[2023-07-08] MEDS: HYDROcodone/acetaminophen (*CRX) 5-325 MG TABLET 1 TAB PO ×4 (04:22→22:20)
[2023-07-08 04:52] LABS: Basophils Percent Auto 0.3 % (0.2-1.2); Eosinophils Absolute Auto 0.1 K/mm3 (0-0.3); Eosinophils Percent Auto 0.6 % (0-4.4); Hematocrit 31.3 % (37.0-47.0); Hemoglobin 10.4 g/dL (12.0-15.0); Immature Granulocyte Absolute 0.04 K/mm3 (0.00-0.031); Immature Granulocyte Percent A 0.4 % (0-0.5); Lymphocytes Absolute Auto 1.38 K/mm3 (0.9-3.2); Lymphocytes Percent Auto 14.8 % (18.3-44.2); Mean Corpuscular HGB Conc 33.2 g/dl (32-36); Mean Corpuscular Hemoglobin 32.7 pg (26-34); Mean Corpuscular Volume 98.4 fl (80-100); Mean Platelet Volume 11.5 fl (7.4-10.4); Monocytes Absolute Auto 0.7 K/mm3 (0.1-0.6); Monocytes Percent Auto 7.5 % (2.6-8.5); Neutrophils Absolute Auto 7.1 K/mm3 (1.3-6.7); Neutrophils Percent Auto 76.4 % (45.5-73.1); Platelet Count Result 159 k/mm3 (150-375); Red Blood Count 3.18 M/mm3 (4.2-5.4); Red Cell Distribution Width 13.7 % (11.5-14.5); White Blood Count 9.3 K/mm3 (4.5-10.0)
--- NOTE | 2023-07-08 06:35 | PM.OBPNVD ---
OB - PN: Subj Subjective Date/time seen: 07/08/23 06:35 Narrative: POD#1 Nadine reports doing well today. 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 Her pain is controlled when taking the pain medications. She is tolerating regular diet and passing gas. Keene catheter was removed at 0400; no spontaneous void and she has not ambulated yet. She denies any issues with her incision. She is breast feeding. OB - PN: Obj Data Labs 07/08/23 04:02 Labs: Laboratory Results - last 24 hr 07/07/23 07/08/23 09:58 04:02 WBC 10.1 H 9.3 RBC 4.07 L 3.18 L Hgb 13.1 10.4 L Hct 40.2 31.3 L MCV 98.8 98.4 MCH 32.2 32.7 MCHC 32.6 33.2 RDW 14.1 13.7 Plt Count 174 159 MPV 10.6 H 11.5 H Immature Gran % (Auto) 0.3 0.4 Neut % (Auto) 83.4 H 76.4 H Lymph % (Auto) 10.5 L 14.8 L [place] % (Auto) 4.5 7.5 Eos % (Auto) 1.0 0.6 Baso % (Auto) 0.3 0.3 Lymph # (Auto) 1.06 1.38 [place] # (Auto) 0.5 0.7 H Eos # (Auto) 0.1 0.1 Baso # (Auto) 0.0 0.0 Abs Immat Gran (auto) 0.03 0.04 H Absolute Neuts (auto) 8.4 H 7.1 H Absolute Nucleated RBC 0.0 0.0 Nucleated RBC % 0.0 0.0 RPR Non-reactive Blood Type B Positive Antibody Screen Negative Imaging Radiologist's impression: Impressions Obstetrics US/Biophysical Profile 07/07/23 09:16 IMPRESSION: 1. Single living fetus in breech presentation. 2. Biophysical profile 8 out of 8. 3. Normal amniotic fluid index. OB - PN A/P Assessment and Plan (1) S/P section: Code(s): Z98.891 - History of uterine scar from previous surgery Status: Acute Plan day: 1 Plan: routine care Comments: - pt to get up in 1-2 hours and attempt to void - continue pain meds, frequent breast feeding - hyrdation and ambulation encouraged Time Spent With Patient Time: Total time spent is greater than 50% in coordination of care (as documented) at patient's floor/unit and/or counseling patient: Review of Systems Constitutional: Constitutional: Denies chills, Denies fever(s) and Denies headache(s) Eyes: Eyes: Denies change in vision ENT: Denies dizziness and Denies headache(s) Cardiovascular: Cardiovascular: Denies chest pain, Denies palpitations and Denies dyspnea Respiratory: Respiratory: Denies cough and Denies dyspnea Gastrointestinal: Gastrointestinal: Denies nausea and Denies vomiting Genitourinary: Comments: normal bleeding Neurologic: Denies dizziness and Denies headache(s) Endocrine: Endocrine: Denies palpitations Exam Const: General: cooperative, comfortable and no acute distress Orientation/consciousness: patient oriented x3 Resp: Effort & Inspection: normal respiratory effort Auscultation: clear to auscultation bilaterally Cardio: Rate: regular rate GI: Inspection: non-distended and incision (covered with clean dressing) GI Palp: Yes abdominal tenderness (appropriate) and Yes Soft to palpation Auscultation: normal bowel sounds : Other: fundus firm Skin: General skin exam: normal color Neuro: General: patient oriented x3 Extrem: General: normal to inspection Psych: Appearance: grossly normal Affect: normal affect Attitude: cooperative
[2023-07-08 08:00] VITALS: BP 94/58; PULSE 57; RESP 18; TEMP 36.3; O2SAT 100
[2023-07-08] MEDS: MULTIVIT/MIN/PREN/FOL AC/IRON TABLET 1 TAB PO (08:59)
[2023-07-08] MEDS: SIMETHICONE 80 MG TAB.CHEW PO (08:59)
[2023-07-08] MEDS: DOCUSATE SODIUM 100 MG CAPSULE PO ×2 (08:59→17:14)
[2023-07-08] MEDS: KETOROLAC 30 MG/ML VIAL (*BKC) IV PUSH (09:12)
--- NOTE | 2023-07-08 11:14 | PC.NURSE ---
[id number] Introductions were made, then consulted with patient to assess needs related to . Primary RN is present. Mother works well with her infant with encouragement understanding of the benefits of skin to skin (demonstrating unwrapping and placing upright on her chest), stimulating with massage touch, changing positions to encourage wakefulness, how to watch for early feeding cues, responsive feeding. Mother latched to the left breast using the cross cradle positioning. Mother denies pain with the latch. Infant latched and sucked for a few, then fell off the breast hold the nipple in the mouth. Encouraged mother to attempt a difference position as her nipple was misshaped after the feeding. Mother agrees to attempting with the football positioning. Reviewed positioning, alignment, good comfortable positioning, support of pillows, supporting the breast with sandwich hold to facilitate a deep latch, asymmetrical latch (off-center), leading with the chin with a big, open, wide gape and body close to mother. latched optimally to the left breast in football position. Education given to mother of how to visualize the suck/swallows. was able to maintain latch without discomfort to mother. Nipple care reviewed with optimal latch and good positioning. Resources used to facilitate learning were used with the mom and baby guide. Mother voiced understanding of skin to skin, stimulating with massage touch, responsive feedings, hand expressed colostrum, talking to to encourage if it has been 2 -2.5 hours since the start of the last , to call if does not latch, or if there is discomfort with . Resources provided for inpatient/outpatient with name written on the communication board and the mom/baby guide. Mother voiced understanding of information, demonstrated learning and will call if there is a request for assistance. Reported to the Primary RN.
--- NOTE | 2023-07-08 14:53 | WPDANLDNPN2 ---
Anes-Prog Note L&D-Neuraxial Date/Time: 07/08/23 14:53 Neuraxial medications: intrathecal PF morphine Opiod-related complaints: none Patient feedback: Patient satisfied with post-operative pain management.
--- NOTE | 2023-07-08 14:54 | WPDANLDPN2 ---
Anes-Prog Note L&D Date/Time: 07/08/23 14:54 Comfortable throughout: section Neuraxial method: spinal Epidural/Spinal procedure site: clean & non-tender Neuro status: Neuro function grossly intact. Cardiovascular status: normal Respiratory status: normal Airway patency: baseline Mental status: baseline Post-Op hydration status: normal Vital Signs: Last Vital Signs Temp 36.3 C L 07/08/23 08:00 Pulse 57 L 07/08/23 08:00 Resp 18 07/08/23 08:00 BP 94/58 L 07/08/23 08:00 Pulse Ox 100 07/08/23 08:00 O2 Del Method Room Air 07/07/23 14:15 Pain score (VAS): 2/10. patient states she was comfortable throughout the procedure and began experiencing pain about 4 hours after arriving to the unit. pain is well controlled with medications. I/O: Intake & Output 07/07/23 07/08/23 07/08/23 23:59 07:59 15:59 Intake Total 1170 1680 500 Output Total 1000 6596 238 Balance 170 -320 -350 Patient feedback: Patient satisfied with anesthetic care.
[2023-07-08 17:10] VITALS: BP 120/71; PULSE 74; RESP 18; TEMP 37.2; O2SAT 99
[2023-07-08] MEDS: IBUPROFEN 600 MG TABLET PO (17:14)
[2023-07-08 20:18] VITALS: BP 108/70; PULSE 73; RESP 18; TEMP 36.8; O2SAT 98
[2023-07-09] MEDS: IBUPROFEN 600 MG TABLET PO ×2 (06:01→13:36)
--- NOTE | 2023-07-09 07:23 | PM.OBDSVD ---
DS: Admitting Diagnosis Discharge Date 07/09/23 Admitting Diagnosis intrauterine at term malpresentation DS: Discharge Diagnosis Discharge Diagnosis (1) Supervision of high risk , unspecified, third trimester: Code(s): O09.93 - Supervision of high risk , unspecified, third trimester Status: Acute (2) Breech presentation: Qualifiers: Fetus number: single or unspecified fetus Qualified Code(s): O32.1XX0 - Maternal care for breech presentation, not applicable or unspecified Code(s): O32.1XX0 - Maternal care for breech presentation, not applicable or unspecified Status: Acute (3) S/P section: Code(s): Z98.891 - History of uterine scar from previous surgery Status: Acute OB - DS: Summary OB Procedures : None OB Procedures Intrapartum: OB Procedures: : None Peripartum Data Infant Delivery Method: Section Procedures: Procedures Operation Date: 07/07/23 10:30 Actual Procedure Side Surgeon p Section Octavia Garcia MD complications: none Status at Discharge Functional status at discharge: independent ambulation Overall status at discharge: patient is progressing back to baseline Time Spent with Patient Time attestation: Total time spent providing and/or coordinating discharge services: Time spent: Less than 30 minutes Exam Const: General: comfortable and no acute distress Resp: Effort & Inspection: normal respiratory effort Auscultation: clear to auscultation bilaterally Cardio: Rate: regular rate GI: Inspection: non-distended GI Palp: Yes Soft to palpation, No Firmness to palpation present (GI), Yes Tenderness to palpation present (GI) (mild tenderness over incision ) and No Guarding due to palpation present (GI) Auscultation: normal bowel sounds Psych: Appearance: grossly normal Mental Status: mental status grossly normal DS: Data Data Completed and Pending Pending studies at discharge: Pending at discharge 07/07/23 12:27 Surgical [PTH] Routine Discharge Plan Discharge Attending physician on discharge: Octavia Garcia Discharging Clinician: Octavia Garcia Patient Disposition: Home, Self-Care Activity: may shower, may drive after 2 weeks and pelvic rest Diet: regular Patient Instructions: (DC) Stand Alone Forms: General Discharge Information Follow-up/Referrals: Octavia Garcia MD [Physician] - 4 Weeks Discharge Medications: New acetaminophen [Mapap (acetaminophen)] 325 mg Tablet 650 mg PO Q6H PRN (Reason: Mild Pain (1-3)) Qty: 60 0RF docusate sodium 100 mg Capsule 100 mg PO BID Qty: 120 0RF ibuprofen 600 mg Tablet 600 mg PO Q6H PRN (Reason: Cramping) Qty: 40 0RF hydrocodone-acetaminophen 5-325 mg Tablet 1 tablet PO Q3H PRN (Reason: Moderate Pain (4-6)) Qty: 24 0RF Continued omeprazole 40 mg capsule,delayed release(DR/EC) 40 mg PO DAILY Qty: 30 1RF prenat.vits,jurgen,ehu-kfqc-ttzeo Tablet 1 tablet PO HS ferrous sulfate 325 mg (65 mg iron) tablet 325 mg PO DAILY Qty: 90 0RF Date of admission: 07/07/23 09:52 Primary Care Provider: PHYSICIAN,SUPPORT COORDINATOR Admitting Provider: Octavia Garcia Attending physician on admission: Octavia Garcia Condition: Stable
[2023-07-09 07:25] VITALS: BP 107/65; PULSE 66; RESP 18; TEMP 36.8; O2SAT 97
[2023-07-09] MEDS: HYDROcodone/acetaminophen (*CRX) 5-325 MG TABLET 1 TAB PO (07:54)
[2023-07-09] MEDS: LANOLIN (LANSINOH) 7.5 GM CREAM 1 APPLIC TOPICAL (07:54)
[2023-07-09] MEDS: DOCUSATE SODIUM 100 MG CAPSULE PO (07:54)
--- NOTE | 2023-07-09 09:07 | PC.NURSE ---
On 07/09/23, the student, Олег Vazquez, provided care and completed [facility] documentation on this patient. I have reviewed the student's documentation and agree with the findings.
--- NOTE | 2023-07-09 12:12 | PC.NURSE ---
[id number] Consulted with patient to assess needs related to . Reviewed working with infant, supporting breast and how to protect the nipples with an optimal deep latch, good positioning, and mother states she has been working on these. Encouraged understanding the benefits of skin to skin, responding to feeding cues, frequencies of feeding 8-12 times in 24 hours (approximately 2-3 hours) milk production and signs of adequate intake encouraging swallowing at the breast. Infant is sleeping in the position at this time. Mother has confidence with her experience with , however she is discouraged right now as her infant will not wake to breastfeed. Reviewed positioning and alignment, supporting breast, off-centered (asymmetrical latch) and leading with the chin with big, open, wide gape and mother states she has been practicing the techniques reviewed. Mother was encouraged to eat her breakfast, Father of baby takes the to stimulate for wakefulness while mother finishes her food. Mother states she is confident to continue effectively her at home. Reinforced understanding of milk production, transition of milk, signs of adequate intake, transition of stool, prevention/relief of engorgement, plugged ducts, mastitis, responsive watching for feeding cues, the different methods of stimulating to breastfeed 2-3 hours after the start of the last feeding, community resources, and when to call a provider using the resource of the mom and baby guide. Mother voiced understanding of the education shared. Reported to the primary RN.
[2023-07-09] MEDS: MULTIVIT/MIN/PREN/FOL AC/IRON TABLET 1 TAB PO (15:29)
[2023-07-09 20:15] VITALS: BP 108/68; PULSE 71; RESP 16; TEMP 36.9
--- NOTE | 2023-07-09 23:00 | PC.NURSE ---
Patient viewed the discharge video [facility] Baby [facility], The First Two Weeks . Patient was given the opportunity and encouraged to ask questions. Patient verbalized understanding of information shared and has been given the mother/baby guide for home reference.
[2023-07-10] MEDS: HYDROcodone/acetaminophen (*CRX) 5-325 MG TABLET 1 TAB PO (00:07)
[2023-07-10] MEDS: DOCUSATE SODIUM 100 MG CAPSULE PO ×2 (00:07→07:57)
[2023-07-10 07:45] VITALS: BP 116/69; PULSE 63; RESP 18; TEMP 36.4; O2SAT 98
[2023-07-10] MEDS: MULTIVIT/MIN/PREN/FOL AC/IRON TABLET 1 TAB PO (07:56)
--- NOTE | 2023-07-10 11:44 | PC.NURSE ---
[id number] Mother verbalizes she is able to independently latch infant with appropriate positioning/alignment. She denies any nipple discomfort and is responsively . Infant is currently meeting outcomes for weight, output, jaundice and feeding frequencies of 8-12 times in 24 hours. Mother declines any additional assistance/education at this time. Mother is feeding appropriately for growth of infant and understands stimulating infant to eat if needed. has had appropriate feedings in the last 24 hours meets the outcomes for weight, output and jaundice at this time. Mother states she is confident to continue effectively her infant at home, when to call for assistance and denies any additional assistance or education at this time. Reinforced understanding of milk production, transition of milk, signs of adequate intake, transition of stool, prevention/relief of engorgement, plugged ducts, mastitis, responsive watching for feeding cues, the different methods of stimulating to breastfeed 2-3 hours after the start of the last feeding and when to call a provider using the resource of the mom and baby guide. Mother voiced understanding of the education shared. Reported to the primary RN.
== END 2023-07-10 12:22 | disposition home or self-care (01) | DRG 788 ==
LOC: ANHLDR 23:11 → ANHOB2 07-08 06:39 → ANHLDR 07-11 10:02
PROVIDERS: Admitting Provider Obstetrics & Gynecology; Visit Provider Student in an Organized Health Care Education/Training Program
PROC: 10D00Z1 Extraction of Products of Conception, Low, Open Approach (ICD-10-PCS; CPT 59514; principal; 2023-07-07 10:30)
DX: O32.1XX0 Maternal care for breech presentation, not applicable or unspecified (principal); O99.824 Streptococcus B carrier state complicating childbirth; Z3A.37 37 weeks gestation of pregnancy; Z37.0 Single live birth
CPT/HCPCS: 36415; 76815; 76819; 85025; 86592; 86850; 86900; 86901; 88307; A9270; J0690; J1100; J1885; J2274; J2371; J2405; J2590; J7120